=== PATIENT | female | born 1975 | race Caucasian/White ===

== ENCOUNTER 2016-10-14 13:29 | Emergency (ER) | payer OTHER ==
--- NOTE | 2016-10-14 16:35 | RAD ---
INDICATION: LEFT foot pain and swelling COMPARISON: Left calcaneus May 06, 2016 TECHNIQUE: AP, lateral, and oblique views were obtained. FINDINGS: There is no acute fracture or dislocation. There is soft tissue swelling. Incidental note is made of heel spurs, unchanged. IMPRESSION: NO ACUTE BONY FINDINGS.
[2016-10-14 18:11] VITALS: BP 134/87
--- NOTE | 2016-10-16 08:34 | ED ---
Comfort Sams Alok, scribed for Des Celis MD on 10/14/16 at 1605 . Lower Extremity - HPI Summary HPI Summary: 41F presents to the ED with left foot pain with swelling. Pt states that her swelling began yesterday. Her pain is aggravated by ambulation. Pt has been taking ibuprofen for pain. Pt has tried using her orthopedic boot with no alleviation. Pt denies known injury. PMHx includes Planerfaciatis. - History of Current Complaint Chief Complaint: EDDizziness Stated Complaint: TIRED, DISORIENTED, PAIN IN LT FOOT Time Seen by Provider: 10/14/16 15:47 Hx Obtained From: Patient Hx Last Menstrual Period: tubal ligation Mechanism Of Injury: Unknown Onset of Pain: Days Onset/Duration: Days Severity Initially: Moderate Severity Currently: Moderate Pain Intensity: 8 Pain Scale Used: 0-10 Numeric Timing: Constant Location: Is Discrete @ - left foot Associated Signs And Symptoms: Positive: Swelling Aggravating Factor(s): Ambulation Alleviating Factor(s): OTC Meds - ibuprofen Able to Bear Weight: No - Allergies/Home Medications Allergies/Adverse Reactions: Allergies Allergy/AdvReac Type Severity Reaction Status Date / Time No Known Allergies Allergy Verified 10/14/16 15:56 PMH/Surg Hx/FS Hx/Imm Hx Endocrine/Hematology History: Reports: Hx Anemia Denies: Hx Diabetes, Hx Thyroid Disease Cardiovascular History: Reports: Hx Hypertension - MEDICATED Denies: Hx Pacemaker/ICD Respiratory History: Denies: Hx Asthma, Hx Chronic Obstructive Pulmonary Disease (COPD) GI History: Denies: Hx Ulcer Musculoskeletal History: Reports: Other Musculoskeletal History - Planerfaciatis Sensory History: Denies: Hx Hearing Aid Psychiatric History: Denies: Hx Panic Disorder - Surgical History Surgery Procedure, Year, and Place: appendectomy, 2008, [facility], [facility] Infectious Disease History: No Infectious Disease History: Denies: Hx Clostridium Difficile, Hx Hepatitis, Hx Human Immunodeficiency Virus (HIV), Hx of Known/Suspected MRSA, Hx Shingles, Hx Tuberculosis, Hx Known/ Suspected VRE, Hx Known/Suspected VRSA, History Other Infectious Disease, Traveled Outside the [place] in Last 30 Days - Family History Known Family History: Positive: Cardiac Disease - [place] - Social History Occupation: Employed Full-time Alcohol Use: Occasionally Hx Substance Use: No Substance Use Type: Reports: None Hx Tobacco Use: Yes Smoking Status (MU): Heavy Every Day Tobacco Smoker Amount Used/How Often: 1/2 ppd Have You Smoked in the Last Year: Yes Review of Systems Negative: Fever Positive: Edema - left foot, Other - left foot pain All Other Systems Reviewed And Are Negative: Yes Physical Exam Triage Information Reviewed: Yes Vital Signs On Initial Exam: Initial Vitals Temp Pulse Resp BP Pulse Ox 97.2 F 94 18 126/91 98 10/14/16 13:33 10/14/16 13:33 10/14/16 13:33 10/14/16 13:33 10/14/16 13:33 Vital Signs Reviewed: Yes Appearance: Positive: Well-Appearing, No Pain Distress Skin: Positive: Warm, Skin Color Reflects Adequate Perfusion, Dry Head/Face: Positive: Normal Head/Face Inspection Eyes: Positive: Normal ENT: Positive: Normal ENT inspection Neck: Positive: Supple, Nontender Respiratory/Lung Sounds: Positive: Clear to Auscultation, Breath Sounds Present Cardiovascular: Positive: RRR Abdomen Description: Positive: Nontender, Soft Bowel Sounds: Positive: Present Musculoskeletal: Positive: Other - Swelling at medial arch of left foot, mildly tender. Not tender to stress on plantar fascia. Neurological: Positive: Normal Psychiatric: Positive: Normal, Affect/Mood Appropriate - Andre Coma Scale Coma Scale Total: 15 Diagnostics - Vital Signs Vital Signs Temp Pulse Resp BP Pulse Ox 10/14/16 16:00 89 97 10/14/16 15:56 86 98 10/14/16 15:55 97.2 F 88 16 145/84 98 10/14/16 15:53 145/84 10/14/16 15:26 90 18 120/90 100 10/14/16 13:33 97.2 F 94 18 126/91 98 - Laboratory Lab Statement: Any lab studies that have been ordered have been reviewed, and results considered in the medical decision making process. - Radiology Foot XRay Xray Interpretation: Positive (See Comments) - IMPRESSION: NO ACUTE BONY FINDINGS. Radiology Interpretation Completed By: Radiologist Lower Extremity Course/Dx - Course Course Of Treatment: Her X-ray is negative and there is no sign of infection. She is not aware of any trauma but this seems as though she has a contusion. - Diagnoses Provider Diagnoses: Foot swelling Discharge - Discharge Plan Condition: Stable Disposition: HOME Prescriptions: traMADol TAB* [Ultram*] 25 mg PO Q6HR PRN #20 tab MDD 4 PRN Reason: Pain Patient Education Materials: Foot Contusion (ED) Forms: *Work Release Referrals: Drake Hewitt MD [Primary Care Provider] - Additional Instructions: Please try and stay off your left foot if possible. Take ibuprofen as needed for pain. The documentation as recorded by the Comfort mak Alok accurately reflects the service I personally performed and the decisions made by me, Des Celis MD.
== END 2016-10-14 18:09 | disposition home or self-care (01) ==
LOC: ED 13:29
DX: M79.89 Other specified soft tissue disorders (principal); M79.672 Pain in left foot; F17.210 Nicotine dependence, cigarettes, uncomplicated
CPT/HCPCS: 99282

== ENCOUNTER 2017-06-11 15:55 | Emergency (ER) | payer OTHER ==
--- OUTSIDE RECORDS SUMMARY | 2017-06-11 16:27 | XMS REPORT ---
:1975 External Reference #:[id number] Author Organization [facility] Address [address] [address] Phone [phone] Care Team Providers Name Role Phone Gema Walker MD Care Team Information Patient Care Secretary Unavailable Drake Hewitt MD Primary Care Physician Unavailable Payers Type Date Identification Numbers Payment Provider Subscriber Commercial Effective: Policy Number: [id number] Total Care/Timothy Rich 2007 [facility] Group Name: [id number] [address] [address] PayID: [id number] [place] [address] Problems Date Description Provider Status Onset: 12/31/2016 Impaired fasting glycaemia Drake Hewitt M.D.,NELSON Active Onset: 03/28/2016 Chiari malformation type I Drake Hewitt M.D.,NELSON Active Note: no syrinx Onset: 12/31/2016 Calcaneal spur of left foot Drake Hewitt M.D.,NELSON Active Onset: 06/02/2011 Obesity Gema Walker M.D. Active Onset: 06/02/2011 Tobacco user Gema Walker M.D. Active Onset: 01/14/2016 Dental caries Drake Hewitt M.D.,NELSON Active Onset: 01/14/2016 Essential hypertension Drake Hewitt M.D.,NELSON Active Onset: 01/14/2016 Thyroid nodule Drake Hewitt M.D.,NELSON Active Note: 7 mm left nodule Onset: 01/14/2016 Iron deficiency anemia Drake Hewitt M.D.,FACP Active Onset: 04/24/2016 Migraine without aura Drake Hewitt M.D.,FACP Active Note: intermittent Onset: 03/11/2017 Abnormal gait Yaneth Melton MD Active Onset: 03/11/2017 Unable to make movements for speech Yaneth Melton MD Active Family History Date Family Member(s) Problem(s) Comments Father due to Pancreatic () Cancer Mother Lupus Mother Fibromyalgia Document: 04/22/16 - Neurology Consult Adult Mother Heart Disease Document: 04/22/16 - Neurology Consult Adult Mother Myocardial infarction Document: 04/22/16 - Neurology Consult Adult Multiple Onset: (age 44 First Sister [place] Years) Social History Type Date Description Comments Marital Status Lives With Boyfriend 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 ETOH Use 12/31/2016 Denies alcohol use Recreational Drug Use 12/12/2015 Denies Drug Use Smoking Light tobacco smoker (10 or fewer cigarettes/day) Exercise Type/Frequency Exercises sporadically Currently Active Patient is currently sexually active Contraceptive Methods Current methods include tubal ligation Avg # Partners in a Year 1 STD's No STD History Allergies, Adverse Reactions, Alerts Date Description Reaction Status Severity Comments 05/21/2011 NKDA active Medications Medication Date Status Form Strength Qnty SIG Indications Ordering Provider Guaifenesin ac 03/09 Active Syrup 100-10mg/ 180ml 5-10 R05 5ML milliliters White, by mouth [employer] every 4 hours as needed cough, use at night Amitriptyline HCL 07/24 Active Tablets 10mg 120ta 4 po qhs G43.009 S. mavis Gallardo M.D. Topiramate 06/16 Active Tablets 25mg 120ta 3 qhs G43.009 Arnulfo S. mavis Gallardo M.D. Hydrocodone-Aceta 04/14 Active Tablets 5-325mg 60tab 1-2 by mouth Jeanna s every night Rolf Hewitt, at bedtime Troy,FACP prn. Tizanidine HCL 03/31 Active Capsules 4mg 30cap 1 tab in G83.4 s evening as Rolf Hewitt, needed Troy,FACP Iferex 150 01/13 Active Capsules 150mg 60cap 1 by mouth D50.8 Drake /2015 s twice a day Rolf Hewitt M.D.,[facility] Lisinopril-Hydroc 12/11 Active Tablets 10-12.5mg 90tab take one I10 Drake hlorothiazide /2015 s tablet by Rolf Hewitt, mouth in the M.D.,[facility] morning Ibuprofen 10/27 Active Tablets 600mg 90tab 1 tab by M54.2 Erwin /2011 s mouth three Pachikara times a day , M.DGa as needed Carpal Tunnel 05/21 Active Misc 1unit as needed 354.0 Gema Wrist /2011 s Walker, Stabilizer/Large/ Troy X-Large Left Hand Amoxicillin/Clavu 03/09 Hx Tablets 875-125mg 14tab one tab J20.9 Theodora lanate Potassium s twice/day Christopher - [employer] 03/16 Chantix Starting 12/31 Hx Tablets 0.5mg X 55tab as directed Drake Month 11 & s Rolf Hewitt, - 1 mg X 42 M.DGa,[facility] 03/10 Naproxen 09/12 Hx Tablets 375mg 60tab 1 by mouth M72.2 s twice a day Jeanna Hill M.D. 12/31 Acetaminophen-Cod 03/12 Hx Tablets 300-30mg 50tab 1-2 tab by G83.4 Chetan norwood #3 s mouth twice Rolf Hewitt, - a day as [facility] 03/31 needed Acetaminophen-Cod 01/13 Hx Tablets 300-30mg 50tab 1-2 tab by K02.7 Chetan norwood #3 s mouth twice Rolf Hewitt, - a day as M[facility]Ga,[facility] 03/12 needed Nicotine 12/11 Hx Kit 21-14-7mg 28uni apply 1 F17.218 Drake /2015 /24HR ts patch to the Rolf Hewitt, - skin one Troy,[facility] 12/11 time daily /2015 Augmentin 12/11 Hx Tablets 875-125mg 20tab by mouth J01.90 s twice a day Jeanna Danielson M.D.,[facility] 12/21 Nicotine 12/11 Hx Patches 7mg/24HR 14uni one patch 24HR ts every day Jeanna Danielson M.D.,[facility] 12/11 Nicotine 12/11 Hx Patches 14mg/24HR 14uni 1 apply 24HR ts patch Rolf Hewitt, - topically Troy,[facility] 12/11 every hours. Nicotine 12/11 Hx Patches 21mg/24HR 28uni apply patch F17.218 24HR ts daily Rolf Hewitt, - topically Troy,[facility] 04/21 Guaifenesin/Codei 06/10 Hx Solution 100-10mg/ 4oz 10 cc up to 465.9 David eJan 5ML qid hrs prn Rianna, - cough Lois.Rolf 12/11 Zanaflex 10/27 Hx Capsules 2mg 30cap 1 tab every 723.1 Gema /2012 s 6-8 hrs Jeanna Walker M.D. 12/11 Flector 10/27 Hx Patches 1.3% 2unit apply to 723.1 Gema /2011 s affected Walker, - area of pain M.D. 12/11 as needed Cyclobenzaprine 10/15 Hx Tablets 10mg 15tab 1 tab tid as 723.1 Gema s needed for Aaron, - muscle spasm M.D. 10/27 Ibuprofen 10/15 Hx Tablets 600mg 30tab 1 tab by 723.1 Gema s mouth three Walker, - times a day M.D. 06/10 prn /2012 Biaxin 06/02 Hx Tablets 500mg 20tab 1 po bid Gema /2012 s Jeanna Walker M.D. 10/15 Cefuroxime Axetil Hx Tablets 250mg 20tab 1 tablet by Unknown /0000 s mouth twice - daily for 10 Auralgan Hx Solution 1unit 3 gtts q4 Unknown /0000 s hours prn - pain in 10/15 affected ear /2012 Excedrin Migraine Hx Tablets 250-250-6 1 po qd prn Unknown /0000 5mg - 12/31 Ferrous Sulfate Hx Tablets 325(65Fe) D50.8 Unknown /0000 mg - 01/13 Immunizations CPT Code Status Date Vaccine Lot # [id number] Given 05/28/2017 Influenza Virus Vaccine, Quadrivalent, Split, [id number] Preservative Free [id number] Given 05/21/2011 Tdap - Tetanus/Diptheria/Acellular Pertussis [id number] Given 05/21/2011 Influenza Virus 3Yrs & Over [id number] Vital Signs Date Vital Result Comment 05/28/2017 Weight 235.00 lb Heart Rate 88 /min BP Systolic Sitting 136 mmHg BP Diastolic Sitting 88 mmHg Body Temperature 96.6 F O2 % BldC Oximetry 96 % 03/11/2017 Height 67 inches 5'7" Weight 238.00 lb Heart Rate 108 /min BP Systolic Sitting 136 mmHg BP Diastolic Sitting 84 mmHg Respiratory Rate 18 /min BMI (Body Mass Index) 37.3 kg/m2 03/09/2017 Height 67 inches 5'7" Weight 240.12 lb Heart Rate 100 /min BP Systolic 126 mmHg BP Diastolic 74 mmHg Body Temperature 97.1 F O2 % BldC Oximetry 99 % BMI (Body Mass Index) 37.6 kg/m2 12/31/2016 Height 67 inches 5'7" Weight 248.00 lb Heart Rate 103 /min BP Systolic Sitting 130 mmHg BP Diastolic Sitting 80 mmHg Body Temperature 98.0 F O2 % BldC Oximetry 96 % BMI (Body Mass Index) 38.8 kg/m2 09/18/2016 Height 67 inches 5'7" Weight 245.38 lb Heart Rate 82 /min BP Systolic Sitting 116 mmHg BP Diastolic Sitting 80 mmHg Respiratory Rate 17 /min BMI (Body Mass Index) 38.4 kg/m2 09/12/2016 Height 67 inches 5'7" Weight 233.00 lb Heart Rate 72 /min Respiratory Rate 15 /min Body Temperature 97.4 F Pain Level 5 BMI (Body Mass Index) 36.5 kg/m2 08/19/2016 Height 67 inches 5'7" Weight 233.00 lb Heart Rate 74 /min BP Systolic 132 mmHg BP Diastolic 72 mmHg Respiratory Rate 18 /min Body Temperature 96.8 F Pain Level 8 BMI (Body Mass Index) 36.5 kg/m2 08/05/2016 Height 67 inches 5'7" Weight 233.00 lb Heart Rate 82 /min BP Systolic 128 mmHg BP Diastolic 86 mmHg Respiratory Rate 14 /min Body Temperature 97.3 F Pain Level 6 BMI (Body Mass Index) 36.5 kg/m2 07/25/2016 Weight 238.38 lb Heart Rate 119 /min BP Systolic Sitting 102 mmHg BP Diastolic Sitting 80 mmHg Body Temperature 97.8 F O2 % BldC Oximetry 96 % 07/24/2016 Height 67 inches 5'7" Weight 237.00 lb Heart Rate 76 /min BP Systolic Sitting 130 mmHg BP Diastolic Sitting 86 mmHg BMI (Body Mass Index) 37.1 kg/m2 06/16/2016 Height 67 inches 5'7" Weight 245.00 lb Heart Rate 78 /min BP Systolic Sitting 130 mmHg BP Diastolic Sitting 88 mmHg BMI (Body Mass Index) 38.4 kg/m2 05/06/2016 Weight 241.00 lb Heart Rate 98 /min BP Systolic Sitting 124 mmHg BP Diastolic Sitting 78 mmHg Respiratory Rate 15 /min Body Temperature 98.4 F O2 % BldC Oximetry 98 % 04/24/2016 Weight 236.38 lb Heart Rate 118 /min BP Systolic Sitting 112 mmHg BP Diastolic Sitting 80 mmHg Body Temperature 97.2 F O2 % BldC Oximetry 98 % 04/22/2016 Height 67 inches 5'7" Weight 238.00 lb Heart Rate 76 /min BP Systolic Sitting 128 mmHg BP Diastolic Sitting 82 mmHg BMI (Body Mass Index) 37.3 kg/m2 03/31/2016 Weight 243.25 lb Heart Rate 88 /min BP Systolic Sitting 120 mmHg BP Diastolic Sitting 70 mmHg Body Temperature 98.2 F O2 % BldC Oximetry 98 % 03/12/2016 Height 67 inches 5'7" Weight 240.12 lb Heart Rate 101 /min BP Systolic Sitting 112 mmHg BP Diastolic Sitting 80 mmHg Body Temperature 97.4 F O2 % BldC Oximetry 99 % BMI (Body Mass Index) 37.6 kg/m2 01/14/2016 Weight 231.12 lb Heart Rate 90 /min BP Systolic Sitting 113 mmHg BP Diastolic Sitting 72 mmHg Body Temperature 97.5 F O2 % BldC Oximetry 97 % 12/12/2015 Height 67 inches 5'7" Weight 235.25 lb Heart Rate 90 /min BP Systolic Sitting 148 mmHg BP Diastolic Sitting 100 mmHg Body Temperature 98.3 F O2 % BldC Oximetry 98 % BMI (Body Mass Index) 36.8 kg/m2 06/10/2012 Height 67 inches 5'7" Weight 243.00 lb Heart Rate 86 /min BP Systolic Sitting 138 mmHg lg cuff BP Diastolic Sitting 90 mmHg lg cuff Body Temperature 99.0 F BMI (Body Mass Index) 38.1 kg/m2 10/28/2011 Height 67 inches 5'7" Weight 237.00 lb Heart Rate 60 /min BP Systolic Sitting 110 mmHg BP Diastolic Sitting 90 mmHg BMI (Body Mass Index) 37.1 kg/m2 10/16/2011 Height 67 inches 5'7" Weight 245.00 lb Heart Rate 76 /min BP Systolic Sitting 128 mmHg L BP Diastolic Sitting 72 mmHg L BMI (Body Mass Index) 38.4 kg/m2 05/28/2011 Height 67 inches 5'7" Weight 233.00 lb Heart Rate 80 /min BP Systolic Sitting 130 mmHg BP Diastolic Sitting 94 mmHg Body Temperature 98.2 F Oral BMI (Body Mass Index) 36.5 kg/m2 05/21/2011 Height 67 inches 5'7" Weight 229.25 lb Heart Rate 72 /min BP Systolic Sitting 118 mmHg l BP Diastolic Sitting 82 mmHg l BMI (Body Mass Index) 35.9 kg/m2 Results Test Date Test Result H/L Range Note Basic Metabolic Panel 05/27/2017 Sodium 134 mmol/L 133-145 1 Potassium 4.5 mmol/L 3.5-5.0 1 Chloride 103 mmol/L 101-111 1 Co2 Carbon Dioxide 25 mmol/L 22-32 1 Anion Gap 6 mmol/L 2-11 1 Glucose 101 mg/dL High 70-100 1 Blood Urea Nitrogen 12 mg/dL 6-24 1 Creatinine 0.67 mg/dL 0.51-0.95 1 BUN/Creatinine Ratio 17.9 8-20 1 Calcium 8.9 mg/dL 8.6-10.3 1 Egfr Non- 97.0 >60 1 Egfr 124.7 >60 1, 2 Laboratory test 05/27/2017 Hemoglobin A1c (Glyco 5.8 % High 4.0-5.6 1, 3 finding HGB) CBC Auto Diff 05/27/2017 White Blood Count 5.9 10^3/uL 3.5-10.8 1 Red Blood Count 4.60 10^6/uL 4.0-5.4 1 Hemoglobin 11.8 g/dL Low 12.0-16.0 1 Hematocrit 37 % 35-47 1 Mean Corpuscular Volume 80 fL 80-97 1 Mean Corpuscular Hemoglobin 26 pg Low 27-31 1 Mean Corpuscular HGB Conc 32 g/dL 31-36 1 Red Cell Distribution Width 17 % High 10.5-15 1 Platelet Count 252 10^3/uL 150-450 1 Mean Platelet Volume 9 um3 7.4-10.4 1 Abs Neutrophils 3.1 10^3/uL 1.5-7.7 1 Abs Lymphocytes 2.2 10^3/uL 1.0-4.8 1 Abs Monocytes 0.4 10^3/uL 0-0.8 1 Abs Eosinophils 0.1 10^3/uL 0-0.6 1 Abs Basophils 0 10^3/uL 0-0.2 1 Abs Nucleated RBC 0 10^3/uL 1 Granulocyte % 52.9 % 38-83 1 Lymphocyte % 36.5 % 25-47 1 Monocyte % 7.5 % 1-9 1 Eosinophil % 2.3 % 0-6 1 Basophil % 0.8 % 0-2 1 Nucleated Red Blood Cells % 0 1 Basic Metabolic Panel 12/04/2016 Sodium 133 mmol/L 133-145 Potassium 4.2 mmol/L 3.5-5.0 Chloride 103 mmol/L 101-111 Co2 Carbon Dioxide 23 mmol/L 22-32 Anion Gap 7 mmol/L 2-11 Glucose 130 mg/dL High 70-100 Blood Urea Nitrogen 10 mg/dL 6-24 Creatinine 0.74 mg/dL 0.51-0.95 BUN/Creatinine Ratio 13.5 8-20 Calcium 9.0 mg/dL 8.6-10.3 Egfr Non- 86.5 >60 Egfr 111.2 >60 4 Lipid Profile (Trig/Chol/HDL) 12/04/2016 Triglycerides 350 mg/dL 5 Cholesterol 170 mg/dL 6 HDL Cholesterol 26.2 mg/dL 7 LDL Cholesterol 74 mg/dL 8 Laboratory test finding 12/04/2016 TSH (Thyroid Stim Horm) 2.95 mcIU/mL 0.34-5.60 CBC Auto Diff 12/04/2016 White Blood Count 9.6 10^3/uL 3.5-10.8 Red Blood Count 4.53 10^6/uL 4.0-5.4 Hemoglobin 11.5 g/dL Low 12.0-16.0 Hematocrit 36 % 35-47 Mean Corpuscular Volume 79 fL Low 80-97 Mean Corpuscular Hemoglobin 25 pg Low 27-31 Mean Corpuscular HGB Conc 32 g/dL 31-36 Red Cell Distribution Width 18 % High 10.5-15 Platelet Count 304 10^3/uL 150-450 Mean Platelet Volume 9 um3 7.4-10.4 Abs Neutrophils 5.3 10^3/uL 1.5-7.7 Abs Lymphocytes 3.5 10^3/uL 1.0-4.8 Abs Monocytes 0.6 10^3/uL 0-0.8 Abs Eosinophils 0.2 10^3/uL 0-0.6 Abs Basophils 0 10^3/uL 0-0.2 Abs Nucleated RBC 0 10^3/uL Granulocyte % 55.4 % 38-83 Lymphocyte % 36.1 % 25-47 Monocyte % 5.7 % 1-9 Eosinophil % 2.3 % 0-6 Basophil % 0.5 % 0-2 Nucleated Red Blood Cells % 0 Laboratory test finding 12/04/2016 Ferritin < 10.0 ng/mL Low 11-307 Laboratory test finding 04/02/2016 Creatine Kinase(CK) 65 U/L 10-223 Myastehnia Gravis (), 04/02/2016 MG Lambert-Eaton See Comment 9 Adult Interpret Acetylcholine Receptor Binding 0.00 nmol/L <=0.02 10 Acetylcholine Recept Mod Ab 0 % 11 Anti-Striated Muscle Antibody Negative titer <1:120 12 Urine Drug SCR ED 03/10/2016 Amphetamine Ur Screen None Detected None Detect & [facility] Barbiturates Urine Screen None Detected None Detect Benzodiazepine Urine Screen None Detected None Detect Urine Cannabinoids Screen None Detected None Detect Urine Cocaine Screen Presumptive Posi <SEE NOTE> None Detect 13 Urine Opiates Screen None Detected None Detect Urine Phencyclidine Screen None Detected None Detect 14 CBC Auto Diff 03/10/2016 White Blood Count 8.0 10^3/uL 3.5-10.8 Red Blood Count 4.68 10^6/uL 4.0-5.4 Hemoglobin 10.4 g/dL Low 12.0-16.0 Hematocrit 33 % Low 35-47 Mean Corpuscular Volume 71 fL Low 80-97 Mean Corpuscular Hemoglobin 22 pg Low 27-31 Mean Corpuscular HGB Conc 31 g/dL 31-36 Red Cell Distribution Width 22 % High 10.5-15 Platelet Count 249 10^3/uL 150-450 Mean Platelet Volume 8 um3 7.4-10.4 Abs Neutrophils 4.3 10^3/uL 1.5-7.7 Abs Lymphocytes 2.8 10^3/uL 1.0-4.8 Abs Monocytes 0.5 10^3/uL 0-0.8 Abs Eosinophils 0.5 10^3/uL 0-0.6 Abs Basophils 0.1 10^3/uL 0-0.2 Abs Nucleated RBC 0 10^3/uL Granulocyte % 53.0 % 38-83 Lymphocyte % 34.5 % 25-47 Monocyte % 5.8 % 1-9 Eosinophil % 5.7 % 0-6 Basophil % 1.0 % 0-2 Nucleated Red Blood Cells % 0 Comp Metabolic Panel 03/10/2016 Sodium 136 mmol/L 133-145 Potassium 4.4 mmol/L 3.5-5.0 Chloride 108 mmol/L 101-111 Co2 Carbon Dioxide 24 mmol/L 22-32 Anion Gap 4 mmol/L 2-11 Glucose 102 mg/dL High 70-100 Blood Urea Nitrogen 12 mg/dL 6-24 Creatinine 0.82 mg/dL 0.51-0.95 BUN/Creatinine Ratio 14.6 8-20 Calcium 8.8 mg/dL 8.6-10.3 Total Protein 6.7 g/dL 6.4-8.9 Albumin 3.7 g/dL 3.2-5.2 Globulin 3.0 g/dL 2-4 Albumin/Globulin Ratio 1.2 1-3 Total Bilirubin 0.20 mg/dL 0.2-1.0 Alkaline Phosphatase 60 U/L 34-104 Alt 10 U/L 7-52 Ast 9 U/L Low 13-39 Egfr Non- 77.2 >60 Egfr 99.3 >60 15 Laboratory test finding 03/10/2016 Troponin-I (TnI) 0.00 ng/mL <0.03 16 Inr/Protime 03/10/2016 Inr 0.96 0.89-1.11 Laboratory test finding 03/10/2016 Lactic Acid 0.9 mmol/L 0.5-2.0 17 HCG < 0.60 mIU/mL 18 Urinalysis Profile 03/10/2016 Urine Color Yellow Urine Appearance Cloudy Urine Specific [place] 1.021 1.010-1.030 Urine pH 5.0 5-9 Urine Urobilinogen Negative Negative Urine Ketones Negative Negative Urine Protein Negative Negative Urine Leukocytes 3+ Negative Urine Blood Negative Negative Urine Nitrite Negative Negative Urine Bilirubin Negative Negative Urine Glucose Negative Negative Urine White Blood Cell Trace(0-5/hpf) Absent Urine Red Blood Cell Absent Absent Urine Bacteria Absent Absent Urine Squamous Epithelial Cell Present Absent Urine Culture And 03/10/2016 Urine Culture SEE RESULT BELOW 19 Sensitivities CBC Auto Diff 12/27/2015 White Blood Count 21.5 10^3/uL High 3.5-10.8 Red Blood Count 5.26 10^6/uL 4.0-5.4 Hemoglobin 10.7 g/dL Low 12.0-16.0 Hematocrit 35 % 35-47 Mean Corpuscular Volume 67 fL Low 80-97 20 Mean Corpuscular Hemoglobin 20 pg Low 27-31 Mean Corpuscular HGB Conc 31 g/dL 31-36 Red Cell Distribution Width 19 % High 10.5-15 Platelet Count 314 10^3/uL 150-450 Mean Platelet Volume 9 um3 7.4-10.4 Abs Neutrophils 18.0 10^3/uL High 1.5-7.7 Abs Lymphocytes 2.1 10^3/uL 1.0-4.8 Abs Monocytes 1.3 10^3/uL High 0-0.8 Abs Eosinophils 0 10^3/uL 0-0.6 Abs Basophils 0.1 10^3/uL 0-0.2 Abs Nucleated RBC 0.02 10^3/uL Granulocyte % 83.5 % High 38-83 Lymphocyte % 10.0 % Low 25-47 Monocyte % 6.0 % 1-9 Eosinophil % 0.2 % 0-6 Basophil % 0.3 % 0-2 Nucleated Red Blood Cells % 0.1 Comp Metabolic Panel 12/27/2015 Sodium 133 mmol/L 133-145 Potassium 3.5 mmol/L 3.5-5.0 Chloride 100 mmol/L Low 101-111 Co2 Carbon Dioxide 23 mmol/L 22-32 Anion Gap 10 mmol/L 2-11 Glucose 114 mg/dL High 70-100 Blood Urea Nitrogen 14 mg/dL 6-24 Creatinine 1.20 mg/dL High 0.51-0.95 BUN/Creatinine Ratio 11.7 8-20 Calcium 9.2 mg/dL 8.6-10.3 Total Protein 7.6 g/dL 6.4-8.9 Albumin 4.2 g/dL 3.2-5.2 Globulin 3.4 g/dL 2-4 Albumin/Globulin Ratio 1.2 1-3 Total Bilirubin 0.50 mg/dL 0.2-1.0 Alkaline Phosphatase 63 U/L 34-104 Alt 10 U/L 7-52 Ast 12 U/L Low 13-39 Egfr Non- 49.8 >60 Egfr 64.0 >60 21 Laboratory test finding 12/27/2015 Magnesium 2.0 mg/dL 1.9-2.7 Troponin-I (TnI) 0.00 ng/mL <0.03 22 TSH (Thyroid Stim Horm) 2.69 mcIU/mL 0.34-5.60 CBC Auto Diff 12/27/2015 White Blood Count 14.2 10^3/uL High 3.5-10.8 Red Blood Count 4.70 10^6/uL 4.0-5.4 Hemoglobin 9.5 g/dL Low 12.0-16.0 Hematocrit 32 % Low 35-47 Mean Corpuscular Volume 67 fL Low 80-97 23 Mean Corpuscular Hemoglobin 20 pg Low 27-31 Mean Corpuscular HGB Conc 30 g/dL Low 31-36 Red Cell Distribution Width 19 % High 10.5-15 Platelet Count 243 10^3/uL 150-450 Mean Platelet Volume 8 um3 7.4-10.4 Abs Neutrophils 11.4 10^3/uL High 1.5-7.7 Abs Lymphocytes 2.0 10^3/uL 1.0-4.8 Abs Monocytes 0.8 10^3/uL 0-0.8 Abs Eosinophils 0 10^3/uL 0-0.6 Abs Basophils 0 10^3/uL 0-0.2 Abs Nucleated RBC 0 10^3/uL Granulocyte % 80.3 % 38-83 Lymphocyte % 13.8 % Low 25-47 Monocyte % 5.4 % 1-9 Eosinophil % 0.2 % 0-6 Basophil % 0.3 % 0-2 Nucleated Red Blood Cells % 0 Urine Culture And 12/27/2015 Urine Culture SEE RESULT BELOW 24 Sensitivities Basic Metabolic Panel 12/13/2015 Sodium 135 mmol/L 133-145 Potassium 3.9 mmol/L 3.5-5.0 Chloride 105 mmol/L 101-111 Co2 Carbon Dioxide 24 mmol/L 22-32 Anion Gap 6 mmol/L 2-11 Glucose 109 mg/dL High 70-100 Blood Urea Nitrogen 11 mg/dL 6-24 Creatinine 0.82 mg/dL 0.51-0.95 BUN/Creatinine Ratio 13.4 8-20 Calcium 9.0 mg/dL 8.6-10.3 Egfr Non- 77.2 >60 Egfr 99.3 >60 25 Laboratory test finding 12/13/2015 TSH (Thyroid Stim Horm) 2.59 mcIU/mL 0.34-5.60 Free T4 (Free Thyroxine) 0.83 ng/dL 0.61-1.12 CBC Auto Diff 12/13/2015 White Blood Count 8.1 10^3/uL 3.5-10.8 Red Blood Count 4.55 10^6/uL 4.0-5.4 Hemoglobin 9.5 g/dL Low 12.0-16.0 Hematocrit 31 % Low 35-47 Mean Corpuscular Volume 67 fL Low 80-97 Mean Corpuscular Hemoglobin 21 pg Low 27-31 Mean Corpuscular HGB Conc 31 g/dL 31-36 Red Cell Distribution Width 20 % High 10.5-15 Platelet Count 298 10^3/uL 150-450 Mean Platelet Volume 9 um3 7.4-10.4 Abs Neutrophils 5.1 10^3/uL 1.5-7.7 Abs Lymphocytes 2.4 10^3/uL 1.0-4.8 Abs Monocytes 0.4 10^3/uL 0-0.8 Abs Eosinophils 0.1 10^3/uL 0-0.6 Abs Basophils 0.1 10^3/uL 0-0.2 Abs Nucleated RBC 0 10^3/uL Granulocyte % 63.2 % 38-83 Lymphocyte % 29.4 % 25-47 Monocyte % 4.9 % 1-9 Eosinophil % 1.8 % 0-6 Basophil % 0.7 % 0-2 Nucleated Red Blood Cells % 0 Iron & Iron Binding Capacity 12/13/2015 Iron 16 g/dL Low 50-212 Unsaturated Iron Binding 471 g/dL Total Iron Binding Capacity 487 g/dL High 250-450 % Iron Saturation 3 % Low 15-55 Cell Morphology 12/13/2015 Microcytosis 2+ Hypochromasia 2+ Tear Drop Cells 1+ Elliptocyte 1+ Laboratory test finding 12/13/2015 Pathologist Review (SEE NOTE) 26 Laboratory test finding 05/29/2011 Throat Culture Full 27 <SEE NOTE> Laboratory test finding 05/21/2011 Cytology 28 <SEE NOTE> 1 FASTING 10 HOUR 2 Because ethnic data is not always readily available, this report includes an eGFR for both -Americans and non- Americans. The National Kidney Disease Education Program (NKDEP) does not endorse the use of the MDRD equation for patients that are not between the ages of 18 and 70, are , have extremes of body size, muscle mass, or nutritional status, or are non- or non-. According to the National Kidney Foundation, irrespective of diagnosis, the stage of the disease is based on the level of kidney function: Stage Description GFR(mL/min/1.73 m(2)) 1 Kidney damage with normal or decreased GFR 90 2 Kidney damage with mild decrease in GFR 60-89 3 Moderate decrease in GFR 30-59 4 Severe decrease in GFR 15-29 5 Kidney failure <15 (or dialysis) 3 Therapeutic target for the treatment of diabetes mellitus patients is <7% HBA1C, and in selective patients <6.0%. Please refer to [place] [employer] diabetic care guidelines for further information. 4 Because ethnic data is not always readily available, this report includes an eGFR for both -Americans and non- Americans. The National Kidney Disease Education Program (NKDEP) does not endorse the use of the MDRD equation for patients that are not between the ages of 18 and 70, are , have extremes of body size, muscle mass, or nutritional status, or are non- or non-. According to the National Kidney Foundation, irrespective of diagnosis, the stage of the disease is based on the level of kidney function: Stage Description GFR(mL/min/1.73 m(2)) 1 Kidney damage with normal or decreased GFR 90 2 Kidney damage with mild decrease in GFR 60-89 3 Moderate decrease in GFR 30-59 4 Severe decrease in GFR 15-29 5 Kidney failure <15 (or dialysis) 5 Desirable <150 Borderline high 150-199 High 200-499 Very High >500 6 Desirable <200 Borderline high 200-239 High >239 7 Low <40 Desirable: 40-60 High: >60 8 Desirable: <100 mg/dL Near Optimal: 100-129 mg/dL Borderline High: 130-159 mg/dL High: 160-189 mg/dL Very High: >189 mg/dL 9 A negative result does not exclude the diagnosis of autoimmune myasthenia gravis. 10 ADDITIONAL INFORMATION This test was developed and its performance characteristics determined by [facility] in a manner consistent with CLIA requirements. This test has not been cleared or approved by the U.S. Food and Drug Administration. 11 REFERENCE VALUE 0-20% (reported as _% loss of AChR) ADDITIONAL INFORMATION This test was developed and its performance characteristics determined by [facility] in a manner consistent with CLIA requirements. This test has not been cleared or approved by the U.S. Food and Drug Administration. 12 ADDITIONAL INFORMATION This test was developed and its performance characteristics determined by [facility] in a manner consistent with CLIA requirements. This test has not been cleared or approved by the U.S. Food and Drug Administration. Test Performed by: [address] [address] [employer] Director: James Cosby II, M.D., Ph.D. 13 Presumptive Positive Presumptive positive results are unconfirmed. 14 The urine specimen was tested at the listed cutoffs: Drug class test level (ng/mL) Amphetamines 500 Barbiturates 200 Benzodiazepine metabolites 200 Cocaine metabolites 150 Cannabinoids 50 Opiates 300 Pcp 25 Specimen was received without chain of custody. Results should be used for medical purposes only. 15 Because ethnic data is not always readily available, this report includes an eGFR for both -Americans and non- Americans. The National Kidney Disease Education Program (NKDEP) does not endorse the use of the MDRD equation for patients that are not between the ages of 18 and 70, are , have extremes of body size, muscle mass, or nutritional status, or are non- or non-. According to the National Kidney Foundation, irrespective of diagnosis, the stage of the disease is based on the level of kidney function: Stage Description GFR(mL/min/1.73 m(2)) 1 Kidney damage with normal or decreased GFR 90 2 Kidney damage with mild decrease in GFR 60-89 3 Moderate decrease in GFR 30-59 4 Severe decrease in GFR 15-29 5 Kidney failure <15 (or dialysis) 16 Reference Range and Interpretation: TnI (ng/mL) Interpretation Less Than 0.03 ng/mL Not supportive of diagnosis of NH 0.03 - 0.50 ng/mL Indeterminate: suggest serial studies if clinically indicated. Greater than 0.5 ng/mL Consistent with diagnosis of NH 17 [facility] Severe Sepsis and Septic Shock Management Bundle Measure requires all lactic acids initially measuring >2.0 mmol/L be repeated. 18 <5.0 Negative 5.0 - 25.0 Indeterminate (Repeat testing recommended after 72 hours) >25.0 Positive Perimenopausal women can display HCG levels of up to 20 mIU/mL 19 SEE RESULT BELOW Name: BRAYAN RICH : [address]: David Wright MD Acct: [id number] Unit: [id number] AGE: 40 Location: ED Re03/10/16 SEX: F Status: DEP ER SPEC: [id number] DESTINY: 03/10/16-[address]: David Wright MD REQ: [id number] RECD: 03/10/16 STATUS: ESHA GARCIA DR: Drake Hewitt MD _ SOURCE: URINE SPDESC: ORDERED: Urine Culture Procedure Result Reported Site Urine Culture Final 03/11/16- 1249 ML No growth of clinically significant organisms * ML - MAIN LAB ([facility]) . END OF REPORT * ML=Testing performed at Main Lab DEPARTMENT OF PATHOLOGY, [address] [place] [address] Tony Balbuena M.D. Director [facility] # [id number] 20 Consistent with previous results on 12/13/15. 21 Because ethnic data is not always readily available, this report includes an eGFR for both -Americans and non- Americans. The National Kidney Disease Education Program (NKDEP) does not endorse the use of the MDRD equation for patients that are not between the ages of 18 and 70, are , have extremes of body size, muscle mass, or nutritional status, or are non- or non-. According to the National Kidney Foundation, irrespective of diagnosis, the stage of the disease is based on the level of kidney function: Stage Description GFR(mL/min/1.73 m(2)) 1 Kidney damage with normal or decreased GFR 90 2 Kidney damage with mild decrease in GFR 60-89 3 Moderate decrease in GFR 30-59 4 Severe decrease in GFR 15-29 5 Kidney failure <15 (or dialysis) 22 Reference Range and Interpretation: TnI (ng/mL) Interpretation Less Than 0.03 ng/mL Not supportive of diagnosis of NH 0.03 - 0.50 ng/mL Indeterminate: suggest serial studies if clinically indicated. Greater than 0.5 ng/mL Consistent with diagnosis of NH 23 Consistent with previous results on 12/27/15. 24 SEE RESULT BELOW Name: BRAYAN RICH : [address]: David rWight MD Acct: [id number] Unit: [id number] AGE: 40 Location: ED Re12/27/15 SEX: F Status: DEP ER SPEC: [id number] DESTINY: 12/27/15-[address]: David Wright MD REQ: [id number] RECD: 12/27/15 STATUS: ESHA BARRAZAHR DR: Gema Heiwtt MD _ SOURCE: URINE SPDESC: ORDERED: Urine Culture Procedure Result Reported Site Urine Culture Final 12/29/15- 08 ML No Growth (<1,000 CFU/mL) * ML - MAIN LAB ([facility]) . END OF REPORT * ML=Testing performed at Main Lab DEPARTMENT OF PATHOLOGY, [address] [place] [address] Tony Balbuena M.D. Director [facility] # [id number] 25 Because ethnic data is not always readily available, this report includes an eGFR for both -Americans and non- Americans. The National Kidney Disease Education Program (NKDEP) does not endorse the use of the MDRD equation for patients that are not between the ages of 18 and 70, are , have extremes of body size, muscle mass, or nutritional status, or are non- or non-. According to the National Kidney Foundation, irrespective of diagnosis, the stage of the disease is based on the level of kidney function: Stage Description GFR(mL/min/1.73 m(2)) 1 Kidney damage with normal or decreased GFR 90 2 Kidney damage with mild decrease in GFR 60-89 3 Moderate decrease in GFR 30-59 4 Severe decrease in GFR 15-29 5 Kidney failure <15 (or dialysis) 26 Hypochromic, microcytic anemia with elevated RDW suggestive of iron deficiency. Additional studies may be considered as clinically warranted. Reviewed by Dr. Balbuena 27 RUN DATE: 05/31/11 [facility] NMI LIVE PAGE 1 RUN TIME: 1052 Specimen Inquiry RUN USER: INTERFACE Name: BRAYAN RICH Status: REG REF Re05/29/11 Age/Sex: 35/F Unit#: [id number] Location: [facility]. : 75 SPEC #: [id number] DESTINY: 05/29/11 STATUS: COMP REQ #: [id number] RECD: 05/29/[address] [facility] [address] S[facility]: THROAT ENTR: 05/29/[address] [facility] [address]: KATERINA: ORDERED: THROAT CULTURE COMMENTS: CHECKING FOR STREP QUERIES: MEDENT REQUISITION # [id number] ACT WKST: B 05/31/11 #1 Procedure Result Verified Site > THROAT CULTURE FULL Final -1051 ML NORMAL THROAT GABRIELLE FULL THROAT CULTURES ARE CLINICALLY INDICATED TO DETECT THE PRESENCE OF GROUP A STREP, ARCANOBACTERIUM AND YEAST. [facility] Permit #[id number] [facility]in [place] [address] DEPARTMENT OF PATHOLOGY, [address] [place] [address] [facility] Permit #[id number] Troy Hernandez M.D. Alterations Supervisor 28 ---- RUN DATE: 05/22/11 [facility] NMI LIVE PAGE 1 RUN TIME: 1320 Specimen Inquiry RUN USER: INTERFACE -- Name: BRAYAN RICH Status: REG REF Re05/21/11 Age/Sex: 35/F Unit#: [id number] [facility] -- Specimen: [id number] Spec Date: 05/21/[address]: Gema escamilla MD Spec Type: CYTOLOGY Received: 05/22/11-1010 Copies to: SOURCE ECTOCERVICAL/ENDOCERVICAL Thin Prep with Reflex HPV Test PATIENT INFORMATION ACTUAL COLLECTION DATE: 05/21/11 ? No POST MENOPAUSAL? No HYSTERECTOMY? No PREVIOUS ABNORMAL PAP SMEARS No LAST MENSTRUAL PERIOD: 05/02/11 PATIENT HISTORY: Prior N/A ADEQUACY OF SPECIMEN Satisfactory for evaluation * Transformation zone component identified * DIAGNOSIS NEGATIVE FOR INTRAEPITHELIAL LESION OR MALIGNANCY * This Pap test was evaluated with the assistance of the ThinPrep Pap Test Imaging System. The Pap Smear is a screening test designed to aid in the detection of premalign ant and malignant conditions of the uterine cervix. It is not a diagnostic procedure a nd should not be used as the sole means of detecting cervical cancer. Both false- positiv e and false-negative reports do occur. Depending on your risk status, a Pap smear ezequiel uld be obtained and evaluated every one to three years. Initial evaluation performed by Suresh MOURA([facility]) 05/22/11 Final Interpretation electronically signed by: Suresh MOURA([facility]) 05/22/11 1319 -- DEPARTMENT OF PATHOLOGY, [address] [place] [address] [facility] Permit #[id number] Tony Balbuena M.D. Director Aric Gates M.D. Electrical Assembly Technician Dir ina -- Procedures Date CPT Code Description Status 08/06/2016 60189 EEG Monitoring Computer Completed 04/24/2016 40519 EEG Recording Awake & Drowsy Completed Encounters Type Date Location Provider CPT E/M Dx Office Visit 03/11/2017 1:00p [facility] [address] R47.89 R26.89 Office Visit 03/09/2017 1:10p [facility] [place] [address] J20.9 - [place] Omid R05 Office Visit 12/31/2016 9:50a [facility] Drake Hewitt, 73900 Z00.01 Medicine - [place] Simmons,FACP G43.009 R73.01 Z82.49 M77.32 D50.8 Z12.31 I10 R53.83 F17.210 Office Visit 09/18/2016 10:15a [facility] Arn[place]fo Dom[facility]nguez [address] G43.009 Troy Gallardo R26.81 R41.82 Office Visit 09/12/2016 10:45a [facility], [address] M72.2 C.Atilio Simmons Office Visit 08/19/2016 10:30a [facility], 82895 M77.32 C.MSherita Simmons M72.2 Office Visit 08/05/2016 10:00a [facility], 15800 M77.32 C.MSherita Simmons M72.2 Office Visit 07/25/2016 9:40a [facility] Drake Bansal 57226 M77.32 [place] Hewitt M.D.,FACP Office Visit 07/24/2016 9:00a [facility] [place] [address] G43.009 Troy Gallardo R26.89 Office Visit 06/16/2016 9:00a [facility] [place] [address] G43.009 Troy Gallardo G93.5 R47.89 M62.81 Office Visit 05/06/2016 2:00p [facility] Drake Hewitt, 39899 M72.2 Claudy Starr M.D.,FACP Office Visit 04/24/2016 11:10a [facility] Drake Hewitt, 04511 G40.209 Medicine - [place] Simmons,FACP D50.8 R51 Office Visit 04/22/2016 11:00a [facility] [place] Gallardo, 00367 M62.81 Troy R47.89 G93.5 Office Visit 03/31/2016 1:40p [facility] Drake Hewitt, 32229 M62.81 Medicine - [place] Simmons,FACP Q07.00 D50.9 M54.2 Office Visit 03/12/2016 11:30a [facility] Drake Hewitt, 11843 Q07.00 Medicine - [place] Simmons,FACP G83.4 D50.9 Office Visit 01/14/2016 10:30a [facility] Drake Hewitt, 39014 I10 - [place] Simmons,FACP K02.7 D50.8 E04.1 Office Visit 12/12/2015 3:40p [facility] Drake Hewitt, 397[address] I10 - [place] Simmons,FACP E03.9 F17.218 E04.1 J01.90 Office Visit 06/10/2012 10:00a [facility] David Blanca, 6[address] 465.9 - Ro Simmons Office Visit 10/28/2011 11:00a [facility] Gema Wlaker, 17117 723.1 - Ro Simmons Office Visit 10/16/2011 10:45a [facility] Gema Walker, 13623 723.1 - Ro Simmons Office Visit 05/28/2011 12:30p [facility] Gema Aaron, 10221 472.1 - Ro Simmons Office Visit 05/21/2011 1:00p [facility] Gema Wlaker, 89127 V72.31 - Ro Simmons 622.9 278.00 354.0 V06.1 V04.81 305.1 Plan of Care Future Appointment(s):01/04/2018 4:20 pm - Drake Hewitt M.D.,FACP at [facility] [address]05/28/2017 - Drake Hewitt M.D.,FACPR26.89 Other abnormalities of gait and wsznjnooB08.01 Impaired fasting glucoseComments: Your blood sugar levels fell within the pre-diabetes ranges.Continue to monitor diet and control your weight to avoid progression to diabetes.M67.472 Ganglion, left ankle and footComments:Ganglion, lumps of nerve tissue, can form but are usually benign. Can purchase pads for feet to increase your comfort. Continue to monitor.I10 Essential (primary) hypertensionGoals:Blood pressure goal <140 /90 in general. Blood pressure goal <150/90 in people older than 75. Blood presure goal <130/85 in diabetic patients. Goal BMI is less than 25.A09 Infectious gastroenteritis and colitis, unspecifiedComments:No signs that nausea is cause for major concern. Continue to monitor diet.
[2017-06-11] MEDS ORDERED: guaiFENesin LIQ* 100 MG/5 ML UDC PO ONE (18:53)
[2017-06-11 19:49] VITALS: BP 137/65
--- NOTE | 2017-06-11 20:14 | RAD ---
Indication: Cough, congestion. 2 views of the chest including dual energy PA views demonstrates no mediastinal shift. Heart is of normal size and configuration. Lung silver demonstrate no pleural fluid, pneumonia or pneumothorax. IMPRESSION: No active cardiopulmonary disease is noted.
--- NOTE | 2017-06-11 20:16 | ED ---
Respiratory - HPI Summary HPI Summary: Patient presents to the ED with cough and congestion for 1 week. She has been taking [id number] Robitussin and Mucinex, using lemon, honey, NT without improvement of symptoms. She denies shortness of breath. She denies chest pain , nausea, vomiting, body aches, or other symptoms. Cough is nonproductive. She states she gets bronchitis several times a year including sinus infections. She denies any sinus pressure, ear pain or headache. Denies any fevers, sweats, chills. Patient is a smoker. - History of Current Complaint Chief Complaint: EDFever Stated Complaint: COUGH/FEVER/BODY ACHES Time Seen by Provider: 06/11/17 17:33 Hx Obtained From: Patient Onset/Duration: Gradual Onset Timing: Constant Initial Severity: Moderate Current Severity: Moderate Pain Intensity: 2 Character: Cough (Nonproductive) Sputum Amount: Moderate Sputum Color: White Aggravating Factor(s): URI, Passive Smoke Exposure Associated Signs and Symptoms: Chest Pain with Cough - Risk Factors Status Asthmaticus Risk Factors: Negative Pulmonary Embolism Risk Factors: Negative Cardiac Risk Factors: Negative Pseudomonas Risk Factors: Negative - Allergy/Home Medications Allergies/Adverse Reactions: Allergies Allergy/AdvReac Type Severity Reaction Status Date / Time No Known Allergies Allergy Verified 10/14/16 15:56 PMH/Surg Hx/FS Hx/Imm Hx Previously Healthy: Yes Endocrine/Hematology History: Reports: Hx Anemia Denies: Hx Diabetes, Hx Thyroid Disease Cardiovascular History: Reports: Hx Hypertension - MEDICATED Denies: Hx Pacemaker/ICD Respiratory History: Denies: Hx Asthma, Hx Chronic Obstructive Pulmonary Disease (COPD) GI History: Denies: Hx Ulcer Musculoskeletal History: Reports: Other Musculoskeletal History - Planerfaciatis Sensory History: Denies: Hx Hearing Aid Psychiatric History: Denies: Hx Panic Disorder - Surgical History Surgery Procedure, Year, and Place: appendectomy, 2008, [facility], TUBAL - Immunization History Date of Influenza Vaccine: 05/2017 Hx Pertussis Vaccination: No Immunizations Up to Date: Yes Infectious Disease History: No Infectious Disease History: Denies: Hx Clostridium Difficile, Hx Hepatitis, Hx Human Immunodeficiency Virus (HIV), Hx of Known/Suspected MRSA, Hx Shingles, Hx Tuberculosis, Hx Known/ Suspected VRE, Hx Known/Suspected VRSA, History Other Infectious Disease, Traveled Outside the [place] in Last 30 Days - Family History Known Family History: Positive: None, Cardiac Disease - [place] - Social History Occupation: Employed Full-time Lives: With Family Alcohol Use: Occasionally Hx Substance Use: No Substance Use Type: Reports: None Hx Tobacco Use: Yes Smoking Status (MU): Heavy Every Day Tobacco Smoker Amount Used/How Often: 1/2 ppd Have You Smoked in the Last Year: Yes Review of Systems Constitutional: Negative Negative: Fever, Chills, Fatigue, Skin Diaphoresis Eyes: Negative Cardiovascular: Negative Positive: Shortness Of Breath, Cough Positive: no symptoms reported, see HPI Musculoskeletal: Negative Neurological: Negative Psychological: Normal All Other Systems Reviewed And Are Negative: Yes Physical Exam Triage Information Reviewed: Yes Vital Signs On Initial Exam: Initial Vitals Temp Pulse Resp BP Pulse Ox 97.8 F 94 20 140/92 98 06/11/17 16:16 06/11/17 16:16 06/11/17 16:16 06/11/17 16:16 06/11/17 16:16 Vital Signs Reviewed: Yes Appearance: Positive: Well-Appearing, Well-Nourished Skin: Positive: Warm, Skin Color Reflects Adequate Perfusion Head/Face: Positive: Normal Head/Face Inspection Eyes: Positive: EOMI, SUKHDEV, Conjunctiva Clear Neck: Positive: Supple, Nontender, No Lymphadenopathy Respiratory/Lung Sounds: Positive: Clear to Auscultation, Breath Sounds Present Cardiovascular: Positive: Normal, RRR, Pulses are Symmetrical in both Upper and Lower Extremities Abdomen Description: Positive: Soft Musculoskeletal: Positive: Strength/ROM Intact Neurological: Positive: Speech Normal Psychiatric: Positive: Normal, Affect/Mood Appropriate Diagnostics - Vital Signs Vital Signs Temp Pulse Resp BP Pulse Ox 06/11/17 19:48 98.1 F 78 17 137/65 99 06/11/17 16:16 97.8 F 94 20 140/92 98 - Laboratory Lab Results: Lab Results 06/11/17 Range/Units 18:27 Influenza A (Rapid) Negative (Negative) Influenza B (Rapid) Negative (Negative) Lab Statement: Any lab studies that have been ordered have been reviewed, and results considered in the medical decision making process. Disposition - Course Course Of Treatment: During the course of treatment chest x-ray and flu swab obtained and both negative. Discussed treatment options with patient. She is given albuterol inhaler and prescribed Robitussin with codeine at bedtime for cough and as needed during the day. She is okay with plan and discharge and will follow up with her PCP as soon as possible. - Diagnoses Provider Diagnoses: Bronchitis Discharge - Discharge Plan Condition: Stable Disposition: HOME Prescriptions: Albuterol HFA INHALER* [Ventolin HFA Inhaler*] 1 puff INH Q4H PRN #1 mdi PRN Reason: Cough Guaifenesin-Codeine [Codeine/Guaifenesin 100-10 mg/5Ml] 10 ml PO Q6H #120 bettie MDD 30 Patient Education Materials: Acute Bronchitis (ED) Forms: *Work Release Referrals: Drake Hewitt MD [Primary Care Provider] - Additional Instructions: humidifier in the home robitussin over the counter during the daytime robitussin with codeine at bedtime Mucinex may help honey, tea, lemon flu is negative chest xray is negative for any pneumonia or other bacterial infection albuterol inhaler up to every 4 hours as needed for shortness of breath
== END 2017-06-11 19:49 | disposition home or self-care (01) ==
LOC: ED 15:55
DX: J40 Bronchitis, not specified as acute or chronic (principal); F17.210 Nicotine dependence, cigarettes, uncomplicated; I10 Essential (primary) hypertension; M72.2 Plantar fascial fibromatosis
CPT/HCPCS: 71046; 87502; 99282

== ENCOUNTER 2017-10-13 21:58 | Emergency (ER) | payer SELFPAY ==
[2017-10-14] MEDS ORDERED: NS 0.9% 1000 ML* 1,000 ML IV ONE (01:00)
[2017-10-14] MEDS ORDERED: Diazepam TAB(*) 5 MG PO ONE (01:00)
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
[2017-10-14 01:20] LABS: ABS Basophils 0 10^3/ul (0-0.2); ABS Eosinophils 0.1 10^3/ul (0-0.6); ABS Lymphocytes 3.3 10^3/ul (1.0-4.8); ABS Monocytes 0.5 10^3/ul (0-0.8); ABS Neutrophils 3.6 10^3/ul (1.5-7.7); ABS Nucleated RBC 0 10^3/ul; Eosinophil % 1.7 % (0-6); Hematocrit 32 % (35-47); Hemoglobin 10.3 g/dl (12.0-16.0); Lymphocyte % 43.6 % (25-47); Mean Corpuscular HGB Conc 32 g/dl (31-36); Mean Corpuscular Hemoglobin 24 pg (27-31); Mean Corpuscular Volume 75 fL (80-97); Mean Platelet Volume 7.6 um3 (7.4-10.4); Nucleated Red Blood Cells % 0; Platelet Count 249 10^3/ul (150-450); Red Blood Count 4.29 10^6/ul (4.0-5.4); Red Cell Distribution Width 17 % (10.5-15); White Blood Count 7.6 10^3/ul (3.5-10.8)
[2017-10-14 01:30] LABS: INR 0.9 (0.77-1.02)
[2017-10-14 01:41] LABS: EGFR Non-African American 78.7 (>60)
[2017-10-14] MEDS ORDERED: Iohexol 300* (CONTRAST) 10 ML SDV IV ONE (01:52)
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
[2017-10-14 03:50] VITALS: BP 124/80
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
== END 2017-10-14 03:48 | disposition home or self-care (01) ==
LOC: ED 21:58
DX: M54.2 Cervicalgia (principal); R07.89 Other chest pain; M25.511 Pain in right shoulder; D64.9 Anemia, unspecified; I10 Essential (primary) hypertension; F17.210 Nicotine dependence, cigarettes, uncomplicated
CPT/HCPCS: 36415; 71045; 71260; 72125; 80053; 83605; 84702; 85025; 85610; 96360; 99282; A9270-GY; Q9967

== ENCOUNTER 2018-04-05 14:26 | Emergency (ER) | payer OTHER ==
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
[2018-04-05] MEDS ORDERED: Acetaminophen TAB* 325 MG PO ONE (14:55)
[2018-04-05] MEDS ORDERED: Ondansetron TAB* 4 MG PO ONE (14:55)
[2018-04-05 17:11] VITALS: BP 123/95
== END 2018-04-05 17:12 | disposition home or self-care (01) ==
LOC: ED 14:26
DX: S00.93XA Contusion of unspecified part of head, initial encounter (principal); S60.511A Abrasion of right hand, initial encounter; R51 Headache; I10 Essential (primary) hypertension; F17.210 Nicotine dependence, cigarettes, uncomplicated; H53.8 Other visual disturbances; R11.2 Nausea with vomiting, unspecified; M79.631 Pain in right forearm; W22.8XXA Striking against or struck by other objects, initial encounter; Y92.9 Unspecified place or not applicable
CPT/HCPCS: 70450; 72125; 99282; A9270-GY

== ENCOUNTER 2018-11-12 14:20 | Emergency (ER) | payer OTHER ==
--- NOTE | 2018-11-12 14:34 | ED ---
HPI Chest Pain - HPI Summary HPI Summary: 43 year old F presenting to [facility] accompanied by male significant other with a chief complaint of worsening chest pain and chest heaviness radiating to her back since yesterday 11/11/18 evening, worse since today 11/12/18. The patient rates the pain 5/10 in severity initially and 7/10 in severity currently. Symptoms aggravated by nothing. Symptoms alleviated by nothing. Patient reports shortness of breath, nausea, diaphoresis, lightheadedness. Patient denies bilateral calf pain, dizziness. Patient took aspirin 81 mg this morning. Patient has hx HTN. She denies hx blood clots, hx diabetes, hx hypercholesteremia. Patient has had tubal ligation, appendectomy, cholecystectomy. Fhx [place] in mother, grandmother, sister when sister was 42 y/o. LNMP beginning of October 2018. /A2. Patient is a smoker who smokes 1/2 PPD. Vital signs while in room: HR 97 bpm, BP 128/74 , O2 sat 99% Home Medications Medication Instructions Recorded Confirmed Type Acetaminophen TAB* [Tylenol TAB*] 1,000 mg PO Q6HR PRN 07/31/12 03/10/16 History Iron Polysaccharide Complex 150 mg PO BID 03/10/16 03/10/16 History [Ferrex 150] Lisinopril/HCTZ 02/26.(NF) 1 tab PO DAILY 03/10/16 03/10/16 History [Zestoretic 02/26.(NF)] traMADol TAB* [Ultram*] 25 mg PO Q6HR PRN #20 tab MDD 4 10/14/16 Rx Albuterol HFA INHALER* [Ventolin 1 puff INH Q4H PRN #1 mdi 06/11/17 Rx HFA Inhaler*] Codeine Phosphate/Guaifenesin 10 ml PO Q6H #120 bettie MDD 30 06/11/17 Rx [Codeine/Guaifenesin 100-10 mg/5Ml] - History of Current Complaint Hx Obtained From: Patient Hx Last Menstrual Period: tubal ligation Onset/Duration: Started Days Ago - yesterday 11/11/18 evening, Still Present, Worse Since - today 11/12/18 Timing: Constant Initial Severity: Moderate Current Severity: Moderate Pain Intensity: 7 Pain Scale Used: 0-10 Numeric Chest Pain Location: Mid Sternal Chest Pain Radiates: Yes Chest Pain Radiates To:: Back Character: Heaviness Aggravating Factor(s): Nothing Alleviating Factor(s): Nothing Associated Signs and Symptoms: Positive: Negative - denies bilateral calf pain, dizziness, Shortness of Breath, Lightheadedness, Diaphoresis, Nausea - Allergy/Home Medications Allergies/Adverse Reactions: Allergies Allergy/AdvReac Type Severity Reaction Status Date / Time No Known Allergies Allergy Verified 11/12/18 14:33 PMH/Surg Hx/FS Hx/Imm Hx Previously Healthy: No Endocrine/Hematology History: Reports: Hx Anemia Denies: Hx Anticoagulant Therapy, Hx Blood Disorders, Hx Diabetes, Hx Thyroid Disease Cardiovascular History: Reports: Hx Hypertension Denies: Hx Hypercholesterolemia, Hx Pacemaker/ICD Respiratory History: Denies: Hx Asthma, Hx Chronic Obstructive Pulmonary Disease (COPD) GI History: Denies: Hx Ulcer Musculoskeletal History: Reports: Other Musculoskeletal History - Plantar fasciitis Sensory History: Reports: Hx Contacts or Glasses Opthamlomology History: Reports: Hx Contacts or Glasses Psychiatric History: Denies: Hx Panic Disorder - Surgical History Surgery Procedure, Year, and Place: appendectomy, 2008, cholecystectomy, tubal ligation Infectious Disease History: No Infectious Disease History: Denies: Hx Clostridium Difficile, Hx Hepatitis, Hx Human Immunodeficiency Virus (HIV), Hx of Known/Suspected MRSA, Hx Shingles, Hx Tuberculosis, Hx Known/ Suspected VRE, Hx Known/Suspected VRSA, History Other Infectious Disease, Traveled Outside the [place] in Last 30 Days - Family History Known Family History: Positive: Cardiac Disease - [place] in mother, grandmother, sister at age 42 - Social History Alcohol Use: Occasionally Hx Substance Use: No Substance Use Type: Reports: None Hx Tobacco Use: Yes Smoking Status (MU): Current Every Day Smoker Amount Used/How Often: 1/2 ppd Have You Smoked in the Last Year: Yes Review of Systems Positive: Skin Diaphoresis Positive: Chest Pain Positive: Shortness Of Breath Positive: Nausea Positive: no symptoms reported Musculoskeletal: Negative - Bilateral calf pain Skin: Negative Neurological: Negative - Dizziness, Other - lightheadedness Psychological: Normal All Other Systems Reviewed And Are Negative: Yes Physical Exam - Summary Physical Exam Summary: Appearance: Ill-appearing, severe pain distress, well-nourished Skin: Warm, color reflects adequate perfusion, diaphoretic Head: Normal Head/Face inspection, atraumatic Eyes: Conjunctiva clear ENT: Normal inspection Neck: Supple, no nodes, no JVD Respiratory: shallow respiration, decreased breath sounds Cardio: RRR, No murmur, pulses normal, brisk capillary refill Abdomen: Soft, nontender Bowel sounds: Present Musculoskeletal: Strength Intact/ROM intact, no calf tenderness, no edema. Psychological: Normal Neuro: Alert, muscle tone normal, no focal deficit Triage Information Reviewed: Yes Vital Signs Reviewed: Yes Diagnostics - Laboratory Result Diagrams: 11/12/18 15:39 11/12/18 15:39 Lab Statement: Any lab studies that have been ordered have been reviewed, and results considered in the medical decision making process. - Radiology CXR Radiology Interpretation Completed By: Radiologist Summary of Radiographic Findings: NO ACTIVE CARDIOPULMONARY DISEASE. ED physician has reviewed this report. - EKG 1423 Cardiac Rate: Tachycardia - 203 BPM EKG Rhythm: Sinus Tachycardia ST Segment: Non-Specific Ectopy: None EKG Comparison: No Significant Change - 03/10/16 Summary of EKG Findings: An EKG at 14:23 reveals sinus tachycardia, nml AV/IV CT , nml QTc, and nml axis. No acute changes. Similar to prior EKG on 03/10/16. ED MD has reviewed and interpreted this EKG. Re-Evaluation - Re-Evaluation First Eval Re-Evaluation Time: 20:39 Comment: Patient to room 12. Patient still has residue pain in the left anterior chest in rib 3,4 interspaces. The pain is not reproduceable. She does not have symptoms of GERD. Her lungs are clear. She agrees to discharge. Chest Pain Course/Dx - Course Course Of Treatment: 43 yo F smoker with HTN and significant family hx of sister with [place] at age 42 presents with chest heaviness sinces yesterday. Patient medications reviewed this visit. Nurses notes reviewed. An EKG at 14: 23 reveals sinus tachycardia, nml AV/IV CT, nml QTc, and nml axis. No acute changes. Similar to prior EKG on 03/10/16. CXR reveals, per radiologist, NO ACTIVE CARDIOPULMONARY DISEASE. Test results with no significant abnormalities except for Hgb 8.9, Hct 29, MCV 63, MCH 19, MCHC 30, RDW 20,(probably iron deficiency anemia) glucose 117, AST 10. Troponin 0.00 at 14:29. Troponin 0.00 at 18:39. In the ED course, the patient was given 1 L normal saline IV, and ASA to make total dose today 324 mg. Patient feels better and would like to go home. Denies chest pain and SOB. Patient will be discharged home with follow up from Dr. Hewitt, primary care provider, within the next week for further evaluation. Pt has not had stress test by her report. Patient was instructed to return to ED for new or worsening symptoms. Patient understands and is agreeable to this discharge plan. - Chest Pain Differential Diagnosis/HQI/PQRI: Acute [place], ACS, Angina, Chest Wall, GI Disease, Lower Respiratory Infection, Pulmonary Embolism - Diagnoses Provider Diagnoses: Chest pain, Tobacco abuse disorder, Anemia Discharge - Sign-Out/Discharge Documenting (check all that apply): Patient Departure - Discharge Patient Received Moderate/Deep Sedation with Procedure: No - Discharge Plan Condition: Stable Disposition: HOME Patient Education Materials: Chest Pain (ED) Referrals: [facility] [Outside] - If Needed Drake Hewitt MD [Primary Care Provider] - 2 Days Additional Instructions: We did not find a serious cause for your chest pain today. We gave you a shot of ketorolac 30mg IM to help with your pain. We recommend that you have definite follow up with your doctor within the next week to evaluate whether you need further care or tests for your heart, with your sister's history. You may be seen at the [facility] clinic if you cannot see your regular doctor in a timely way. Return to the ER if you have any new or worsening symptoms. - Billing Disposition and Condition Condition: STABLE Disposition: Home - Attestation Statements Document Initiated by Isaiah: Yes Documenting Scribe: Brooke Chavez Provider For Whom Isaiah is Documenting (Include Credential): Kathryn Oliveira MD Scribe Attestation: Brooke Sams, scribed for Kathryn Oliveira MD on 11/13/18 at 1608. Scribe Documentation Reviewed: Yes Provider Attestation: The documentation as recorded by the Brooke mak accurately reflects the service I personally performed and the decisions made by me, Kathryn Oliveira MD Status of Scribe Document: Viewed
[2018-11-12] MEDS ORDERED: NS 0.9% 1000 ML** 1,000 ML IV ONE (14:37)
[2018-11-12 15:52] LABS: Hematocrit 29 % (35-47); Hemoglobin 8.9 g/dL (12.0-16.0); Mean Corpuscular HGB Conc 30 g/dL (31-36); Mean Corpuscular Hemoglobin 19 pg (27-31); Mean Corpuscular Volume 63 fL (80-97); Mean Platelet Volume 8.4 fL (7.4-10.4); Platelet Count 305 10^3/uL (150-450); Red Blood Count 4.65 10^6 /uL (3.70-4.87); Red Cell Distribution Width 20 % (10-15); White Blood Count 8.4 10^3/uL (3.5-10.8)
[2018-11-12 15:56] LABS: INR 1.01 (0.82-1.09)
[2018-11-12 15:59] LABS: Activated Partial Thrombo Time 31.4 seconds (26.0-38.0)
[2018-11-12 16:07] LABS: Albumin 4.1 g/dL (3.2-5.2); Albumin/Globulin Ratio 1.2 (1-3); BUN/Creatinine Ratio 14.6 (8-20); Calcium 9.2 mg/dL (8.6-10.3); EGFR African American 92.1 (>60); EGFR Non-African American 76.1 (>60); Globulin 3.3 g/dL (2-4); Potassium 3.6 mmol/L (3.5-5.0); Total Bilirubin 0.4 mg/dL (0.2-1.0); Total Protein 7.4 g/dL (6.4-8.9)
[2018-11-12 16:08] LABS: Creatine Kinase 93 U/L (10-223); Magnesium 1.9 mg/dL (1.9-2.7)
[2018-11-12 16:14] LABS: CKMB ng/mL 1.1 ng/mL (0.6-6.3)
[2018-11-12 16:15] LABS: HCG Pregnancy < 0.60 mIU/mL
[2018-11-12 16:45] LABS: Microcytosis 2+; Polychromasia 1+
[2018-11-12 16:46] LABS: ABS Basophils 0.1 10^3/ul (0-0.2); ABS Eosinophils 0.2 10^3/ul (0-0.6); ABS Lymphocytes 2.9 10^3/ul (1.0-4.8); ABS Monocytes 0.5 10^3/ul (0-0.8); ABS Neutrophils 4.6 10^3/ul (1.5-7.7); Eosinophil % 2.2 %; Lymphocyte % 35.3 %; TSH (Thyroid Stimulating Horm) 2.84 mcIU/mL (0.34-5.60)
[2018-11-12] MEDS ORDERED: Ketorolac INJ* 30 MG/ML 1 ML VIAL IM ONE (20:44)
[2018-11-12 22:17] VITALS: BP 125/78
== END 2018-11-12 21:15 | disposition home or self-care (01) ==
LOC: ED 14:20
DX: R07.9 Chest pain, unspecified (principal); I10 Essential (primary) hypertension; D64.9 Anemia, unspecified; F17.210 Nicotine dependence, cigarettes, uncomplicated; Z82.49 Family history of ischemic heart disease and other diseases of the circulatory system
CPT/HCPCS: 36415; 71046; 80053; 82550; 82553; 83735; 84443; 84484; 84702; 85025; 85379; 85610; 85730; 93005; 96360; 96372; 99283; J1885